=== PATIENT | male | born 1995 | race Caucasian/White ===

== ENCOUNTER 2017-04-01 13:32 | Emergency (ER) | payer OTHER ==
[2017-04-01 13:38] VITALS: BP 150/73; PULSE 83; TEMP 97.3; BMI 28.0
[2017-04-01 15:07] LABS: URINE APPEARANCE CLOUDY; URINE BILIRUBIN NEGATIVE (NEGATIVE); URINE BLOOD NEGATIVE (NEGATIVE); URINE COLOR YELLOW; URINE GLUCOSE (UA) NEGATIVE (NEGATIVE); URINE KETONE NEGATIVE (NEGATIVE); URINE NITRITE NEGATIVE (NEGATIVE); URINE PROTEIN NEGATIVE (NEGATIVE); URINE UROBILINOGEN NEGATIVE mg/dL (0.2-1.0)
--- NOTE | 2017-04-01 15:09 | PDOC ---
History of Present Illness - General Chief Complaint: Penile Drainage Stated Complaint: TESTICLE PAIN Time Seen by Provider: 04/01/17 14:36 Past History - Past Medical History Allergies/Adverse Reactions: Allergies Allergy/AdvReac Type Severity Reaction Status Date / Time No Known Allergies Allergy Verified 04/01/17 13:34 Home Medications: Ambulatory Orders No Home Medications 0 dose .ROUTE UTDICT 06/17/12 Valacyclovir HCl [Valtrex -] 500 mg PO BID #10 tablet 04/01/17 COPD: No Other medical history: none - Suicide/Smoking/Psychosocial Hx Smoking Status: No Smoking History: Never smoked Have you smoked in the past 12 months: No Number of Cigarettes Smoked Daily: 0 Information on smoking cessation initiated: No Hx Alcohol Use: No Drug/Substance Use Hx: No Substance Use Type: None *Physical Exam - Vital Signs Last Vital Signs Temp Pulse Resp BP Pulse Ox 97.3 F L 83 18 150/73 100 04/01/17 13:35 04/01/17 13:35 04/01/17 13:35 04/01/17 13:35 04/01/17 13:35 Medical Decision Making - Medical Decision Making 04/01/17 17:35 HIV testing is negative at this time. 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 *DC/Admit/Observation/Transfer Diagnosis at time of Disposition: Herpes genitalis in men, STD exposure - Prescriptions Prescriptions: Valacyclovir HCl [Valtrex -] 500 mg PO BID #10 tablet - Referrals Referrals: Bebeto Yung MD [Staff Physician] - - Patient Instructions Printed Discharge Instructions: DI for Genital Herpes Additional Instructions: 04/01/17 1. As discussed, a screening test for the HIV virus was performed today. Your HIV test is Negative (normal). 2. As discussed, if you engaged in high risk-behavior in the three (3) months prior to this test, you could still potentially be at risk and you will need to be re-tested. 3. As discussed, avoid any high risk behavior (such as unprotected sex or needle-sharing) in the future to minimize the chances of brenton HIV. You were prescribed valacyclovir for a herpes outbreak. Please take the medication as prescribed and follow up with your primary care doctor. You should wear a condom every time. - Post Discharge Activity
[2017-04-01] MEDS ORDERED: AZITHROMYCIN 500 MG TABLET PO ONE (15:10)
[2017-04-01] MEDS ORDERED: AZITHROMYCIN 500 MG TABLET ONE (15:13)
[2017-04-01 17:20] LABS: HIV 1 & 2 AB NEGATIVE; HIV 1 AGp24 NEGATIVE
[2017-04-01 20:03] LABS: URINE LEUK ESTERASE Negative (NEGATIVE)
[2017-04-04 00:07] LABS: HSV 2 DNA. Negative (Negative)
== END 2017-04-01 17:46 | disposition home or self-care (01) ==
LOC: JERFT 13:32
DX: R36.9 Urethral discharge, unspecified (principal); Z20.2 Contact with and (suspected) exposure to infections with a predominantly sexual mode of transmission
CPT/HCPCS: 36415; 81003; 87086; 87389; 87491; 87529; 87591; 96372; 99281-25